=== PATIENT | female | born 1935 | race Caucasian/White ===

== ENCOUNTER 2016-10-22 15:40 | Inpatient (IN) | payer OTHER ==
[2016-10-22] VITALS (9 sets, daily range): BP systolic 131–166; BP diastolic 61–72
[~2016-10-22] VITALS: Ht 162.6 cm; Wt 53.6 kg
[~2016-10-22 15:40] MED LIST: AMLODIPINE BESYL5 MG PO; ASPIRIN81 M2 PO; Ascorbic Acid,Ester- PO; BACTRIM,SEPT1 TABLET PO; CALCIUM 600 +1 EAC9 PO; Ceftin PO; DAILY MULTIPLE1 EACH PO; DIOVAN160 MG PO; ELAVIL25 MG PO; ESTRADIOL0.5 MG PO; FOSAMAX35 MG PO; KEFLEX500 MG PO; LUTEIN10 MG PO; Miralax, Glycolax PO; PLAVIX75 MG PO; PRAVACHOL40 MG PO; QUALAQUIN324 MG PO; TAMIFLU75 MG PO; TESSALON PERLE100 MG PO; TONIC WATER PO; TRAMADOL HCL50 MG PO; Ultram PO; VALSARTAN320 MG PO; ZITHROMAX Z-PA250 MG PO
[2016-10-22 16:07] LABS: EOSINOPHIL (%) 2.8 % (0-5); EOSINOPHIL COUNT 0.2 K/uL (0-0.3); HEMATOCRIT 35.2 % (36.0-46.0); IMMATURE GRANULOCYTE (%) 0.6 % (0.0-0.7); INSTRUMENT ABS NEUTROPHIL CT 4.2 K/uL; LYMPHOCYTE COUNT 1.8 K/uL (1.0-2.8); MCH 28.5 PG (29.0-34.0); MCV 91.9 FL (83-99); MEAN PLAT.VOLUME 10.1 uM^3 (9.5-12.4); MONOCYTE COUNT 0.9 K/uL (0-0.8); NEUTROPHIL (%) 59.3 % (45-76); NEUTROPHIL COUNT 4.2 K/uL (1.8-6.4); PLATELET COUNT 299 K/uL (156-360); RBC DIS.WIDTH-CV 13.3 % (11.8-14.6); RBC DIS.WIDTH-SD 45.2 % (39-53); RED BLOOD COUNT 3.83 M/uL (3.80-5.20); WHITE BLOOD COUNT 7.2 K/uL (4.1-10.2)
[2016-10-22 16:15] LABS: AMYLASE 217 IU/L (1-118); CHLORIDE 105 mEq/L (99-109); POTASSIUM 4.9 mEq/L (3.7-5.4); SODIUM 135 mEq/L (136-147)
[2016-10-22 16:16] LABS: GLUCOSE 99 mg/dL (70-99); PROTHROMBIN TIME 10.2 (9.2-11.2)
[2016-10-22 16:18] LABS: ANION GAP 10 MEQ/L (2-14)
[2016-10-22 16:20] LABS: GFR ESTIMATE (CALCULATED) 19 mL/min/; SERUM ETHYL ALCOHOL < 10 mg/dL
[2016-10-22 16:21] LABS: UREA NITROGEN (BUN) 56 mg/dL (9-23)
[2016-10-22 16:23] LABS: LIPASE 86 U/L (1.0-51.0)
[2016-10-22 16:25] LABS: POINT-OF-CARE METER ID UU13113702
[2016-10-22 16:27] LABS: TROP-I INTERPRETATION NEGATIVE; TROPONIN-I 0.01 ng/mL (0.0-0.30)
[2016-10-22] MEDS ORDERED: TYLENOL REGULA325 MG PO (19:30)
[2016-10-22] MEDS ORDERED: PROAIR HFA8.5 GM IH (19:30)
[2016-10-22] MEDS ORDERED: NATURAL BALANCE15 M1 BOTH EYES (19:31)
[2016-10-22] MEDS ORDERED: AQUAPHOR W-NAT50 GM TP (19:31)
[2016-10-22 20:03] LABS: ADD MIUA? YES; BILIRUBIN NEGATIVE; BLOOD NEGATIVE; COLOR YELLOW ((YELLOW)); GLUCOSE (STRIP) NEGATIVE; KETONES NEGATIVE; LEUKOCYTES LARGE; NITRITE NEGATIVE; PROTEIN (STRIP) 100; SPECIFIC GRAVITY 1.012 (1.000-1.030); UROBILINOGEN 0.2 MG/DL (0.2-1.0)
[2016-10-22 20:31] LABS: BACTERIA RARE /HPF; EPITHELIAL CELLS RARE /HPF; MUCUS NONE SEEN /LPF; RED BLOOD CELLS 0-5 /HPF (0-5); UCUL ADDED? YES; WHITE BLOOD CELLS TNTC /HPF (0-5)
[2016-10-22 20:31] LABS: AMPHETAMINE NEGATIVE (500 ng/mL); BARBITURATES NEGATIVE (200 ng/mL); BENZODIAZEPINES NEGATIVE (150 ng/mL); COCAINE NEGATIVE (150 ng/mL); INTERNAL CONTROLS VALID? YES; METHADONE NEGATIVE (200 ng/mL); METHAMPHETAMINE NEGATIVE (500 ng/mL); OPIATES (MORPHINE) NEGATIVE (100 ng/mL); OXYCODONE NEGATIVE (100 ng/mL); PHENCYCLIDINE NEGATIVE (25 ng/mL); PROPOXYPHENE NEGATIVE (300 ng/mL); THC CANNABINOIDS NEGATIVE (50 ng/mL); TRICYCLIC ANTIDEPRESSANTS PRESUMPTIVE POSITIVE (300 ng/mL)
[2016-10-22 21:49] LABS: METH RESISTANT S AUREUS PCR NEGATIVE (NEGATIVE)
[2016-10-22 21:53] LABS: PROBE CHECK PASS; SPECIMEN PROCESSING CONTROL PASS
[2016-10-23] VITALS (21 sets, daily range): BP systolic 122–177; BP diastolic 41–85
[2016-10-23 06:01] LABS: HEMATOCRIT 29.6 % (36.0-46.0); MCH 28.9 PG (29.0-34.0); MCHC 31.1 G/DL (30.0-36.0); MCV 93.1 FL (83-99); MEAN PLAT.VOLUME 10.2 uM^3 (9.5-12.4); PLATELET COUNT 232 K/uL (156-360); RBC DIS.WIDTH-CV 13.3 % (11.8-14.6); RBC DIS.WIDTH-SD 45.3 % (39-53); RED BLOOD COUNT 3.18 M/uL (3.80-5.20); WHITE BLOOD COUNT 6.2 K/uL (4.1-10.2)
[2016-10-23 06:22] LABS: ANION GAP 8 MEQ/L (2-14); CHLORIDE 110 MEQ/L (99-109); GLUCOSE 74 mg/dL (70-99); MAGNESIUM 2.1 mg/dl (1.3-2.7); POTASSIUM 4.8 MEQ/L (3.7-5.4); SAMPLE HEMOLYSIS CHECK 0; SAMPLE ICTERIC CHECK 0; SAMPLE LIPEMIA CHECK 0; SODIUM 139 MEQ/L (136-147); UREA NITROGEN (BUN) 45 mg/dL (9-23)
[2016-10-23 06:39] LABS: GFR ESTIMATE (CALCULATED) 25 mL/min/
[2016-10-23 13:34] LABS: FASTING STATUS NONFASTING
[2016-10-23 14:10] LABS: HDL CHOLESTEROL 59 MG/DL (Desirable>=50); LDL CHOLESTEROL 68 mg/dL (Desirable<100); NON-HDL CHOLESTEROL 95 mg/dL (Desirable<160); TOTAL CHOLESTEROL 154 mg/dL (Desirable<200); TRIGLYCERIDES 134 MG/DL (Normal: <150)
[2016-10-24 03:00] VITALS: BP 116/60; BP 123/61
[2016-10-24 06:53] LABS: HEMATOCRIT 35.6 % (36.0-46.0); MCH 28.6 PG (29.0-34.0); MCHC 30.3 G/DL (30.0-36.0); MCV 94.4 FL (83-99); MEAN PLAT.VOLUME 10.3 uM^3 (9.5-12.4); PLATELET COUNT 260 K/uL (156-360); RBC DIS.WIDTH-CV 13.5 % (11.8-14.6); RBC DIS.WIDTH-SD 46.6 % (39-53); RED BLOOD COUNT 3.77 M/uL (3.80-5.20); WHITE BLOOD COUNT 6.3 K/uL (4.1-10.2)
[2016-10-24 07:14] LABS: ANION GAP 10 MEQ/L (2-14); CHLORIDE 113 MEQ/L (99-109); GFR ESTIMATE (CALCULATED) 29 mL/min/; GLUCOSE 89 mg/dL (70-99); MAGNESIUM 2.2 mg/dl (1.3-2.7); POTASSIUM 4.6 MEQ/L (3.7-5.4); SAMPLE HEMOLYSIS CHECK 0; SAMPLE ICTERIC CHECK 0; SAMPLE LIPEMIA CHECK 0; SODIUM 143 MEQ/L (136-147); UREA NITROGEN (BUN) 39 mg/dL (9-23)
[2016-10-24 08:47] VITALS: BP 132/72
[2016-10-24 11:26] VITALS: BP 130/70
[2016-10-24 15:43] VITALS: BP 118/68
[2016-10-24 19:10] VITALS: BP 132/66
[2016-10-25 00:26] VITALS: BP 142/67
[2016-10-25 04:37] VITALS: BP 130/76
[2016-10-25 06:49] LABS: HEMATOCRIT 32.3 % (36.0-46.0); MCH 28.9 PG (29.0-34.0); MCV 93.4 FL (83-99); MEAN PLAT.VOLUME 10.4 uM^3 (9.5-12.4); PLATELET COUNT 262 K/uL (156-360); RBC DIS.WIDTH-CV 13.6 % (11.8-14.6); RBC DIS.WIDTH-SD 46.1 % (39-53); RED BLOOD COUNT 3.46 M/uL (3.80-5.20); WHITE BLOOD COUNT 5.9 K/uL (4.1-10.2)
[2016-10-25 07:24] LABS: ANION GAP 10 MEQ/L (2-14); CHLORIDE 109 MEQ/L (99-109); GFR ESTIMATE (CALCULATED) 29 mL/min/; GLUCOSE 85 mg/dL (70-99); MAGNESIUM 1.9 mg/dl (1.3-2.7); POTASSIUM 4.5 MEQ/L (3.7-5.4); SAMPLE HEMOLYSIS CHECK 0; SAMPLE ICTERIC CHECK 0; SAMPLE LIPEMIA CHECK 0; SODIUM 140 MEQ/L (136-147); UREA NITROGEN (BUN) 41 mg/dL (9-23)
[2016-10-25 08:30] VITALS: BP 142/64
[2016-10-25 12:30] VITALS: BP 175/74
[2016-10-25 15:26] VITALS: BP 186/79
[2016-10-25 20:11] VITALS: BP 175/68
[2016-10-26] VITALS (7 sets, daily range): BP systolic 110–148; BP diastolic 64–78
[2016-10-26 07:06] LABS: HEMATOCRIT 32.7 % (36.0-46.0); MCH 28.6 PG (29.0-34.0); MCHC 30.9 G/DL (30.0-36.0); MCV 92.6 FL (83-99); MEAN PLAT.VOLUME 10.5 uM^3 (9.5-12.4); PLATELET COUNT 255 K/uL (156-360); RBC DIS.WIDTH-CV 13.4 % (11.8-14.6); RBC DIS.WIDTH-SD 45.1 % (39-53); RED BLOOD COUNT 3.53 M/uL (3.80-5.20)
[2016-10-26 07:08] LABS: WHITE BLOOD COUNT 7.7 K/uL (4.1-10.2)
[2016-10-26 07:21] LABS: ANION GAP 10 MEQ/L (2-14); CHLORIDE 106 MEQ/L (99-109); GFR ESTIMATE (CALCULATED) 29 mL/min/; GLUCOSE 81 mg/dL (70-99); MAGNESIUM 1.9 mg/dl (1.3-2.7); POTASSIUM 4.8 MEQ/L (3.7-5.4); SAMPLE HEMOLYSIS CHECK 0; SAMPLE ICTERIC CHECK 0; SAMPLE LIPEMIA CHECK 0; SODIUM 138 MEQ/L (136-147); UREA NITROGEN (BUN) 47 mg/dL (9-23)
[2016-10-27 04:19] VITALS: BP 117/58
[2016-10-27 07:44] VITALS: BP 118/58
[2016-10-27 12:08] VITALS: BP 120/62
[2016-10-27] MEDS ORDERED: MAXIPIME1 GM IV (14:24)
== END 2016-10-27 14:56 | disposition home or self-care (01) | DRG 62 ==
LOC: EME → EDBD 15:40 → EME 15:40 → 4EAST 17:49 → EDOF 17:49 → 4WEST 17:49 → 4EAST 10-23 21:43
PROVIDERS: Emergency Medicine; Internal Medicine Nephrology
DX: I63.9 Cerebral infarction, unspecified (principal); N17.9 Acute kidney failure, unspecified; I69.351 Hemiplegia and hemiparesis following cerebral infarction affecting right dominant side; N39.0 Urinary tract infection, site not specified; N18.9 Chronic kidney disease, unspecified; I12.9 Hypertensive chronic kidney disease with stage 1 through stage 4 chronic kidney disease, or unspecified chronic kidney disease; I73.9 Peripheral vascular disease, unspecified; G47.00 Insomnia, unspecified; M81.0 Age-related osteoporosis without current pathological fracture; H35.30 Unspecified macular degeneration; L40.9 Psoriasis, unspecified; B96.5 Pseudomonas (aeruginosa) (mallei) (pseudomallei) as the cause of diseases classified elsewhere; Z79.01 Long term (current) use of anticoagulants; Z87.891 Personal history of nicotine dependence
CPT/HCPCS: 70450; 70544; 70547; 70551; 80048; 80061; 81003; 82150; 82948; 83690; 83735; 84100; 84484; 85025; 85027; 85610; 85730; 86850; 86900; 86901; 87077; 87086; 87186; 87641; 93005; 93306; 99281; 99285; G0480; J0692; J2060; J2997; J7030; J7050; S0028

== ENCOUNTER 2018-03-04 14:23 | Emergency (ER) | payer OTHER ==
[~2018-03-04] VITALS: Ht 160 cm; Wt 50.8 kg
[~2018-03-04 14:23] MED LIST changes: +AQUAPHOR W-NAT50 GM TP; +MAXIPIME1 GM IV; +NATURAL BALANCE15 M1 BOTH EYES; +PROAIR HFA8.5 GM IH; +TYLENOL REGULA325 MG PO
[2018-03-04 16:29] VITALS: BP 152/82
== END 2018-03-04 16:29 | disposition home or self-care (01) ==
LOC: EME 14:23
DX: S00.83XA Contusion of other part of head, initial encounter (principal); S51.012A Laceration without foreign body of left elbow, initial encounter; W01.0XXA Fall on same level from slipping, tripping and stumbling without subsequent striking against object, initial encounter; J44.9 Chronic obstructive pulmonary disease, unspecified; M79.7 Fibromyalgia; Z87.891 Personal history of nicotine dependence; Z79.02 Long term (current) use of antithrombotics/antiplatelets; Z79.82 Long term (current) use of aspirin; Z90.710 Acquired absence of both cervix and uterus; Z88.2 Allergy status to sulfonamides; Z88.5 Allergy status to narcotic agent
CPT/HCPCS: 70450; 73080; 99281; 99284

== ENCOUNTER 2018-03-08 16:04 | Emergency (ER) | payer OTHER ==
[~2018-03-08] VITALS: Ht 160 cm; Wt 49.2 kg
[2018-03-08 17:26] LABS: HEMATOCRIT 31.3 % (36.0-46.0); HEMOGLOBIN 10.3 G/DL (11.9-15.5); MCH 28.9 PG (29.0-34.0); MCHC 32.9 G/DL (30.0-36.0); MCV 87.7 FL (83-99); PLATELET COUNT 230 K/uL (156-360); RBC DIS.WIDTH-CV 14.1 % (11.8-14.6); RBC DIS.WIDTH-SD 44.9 % (39-53); RED BLOOD COUNT 3.57 M/uL (3.80-5.20); WHITE BLOOD COUNT 7.5 K/uL (4.1-10.2)
[2018-03-08 17:38] LABS: CHLORIDE 102 mEq/L (99-109); POTASSIUM 4.8 mEq/L (3.7-5.4); SODIUM 138 mEq/L (136-147)
[2018-03-08 17:40] LABS: GLUCOSE 96 mg/dL (70-99)
[2018-03-08 17:44] LABS: GFR ESTIMATE (CALCULATED) 25 mL/min/
[2018-03-08 17:45] LABS: UREA NITROGEN (BUN) 47 mg/dL (9-23)
[2018-03-08] MEDS ORDERED: KEFLEX250 MG PO (19:28)
[2018-03-08] MEDS ORDERED: TRAMADOL HCL50 MG PO (19:34)
[2018-03-08 19:43] VITALS: BP 157/75
== END 2018-03-08 19:45 | disposition home or self-care (01) ==
LOC: EME 16:04
PROVIDERS: Physician Assistant
DX: L03.114 Cellulitis of left upper limb (principal); N18.9 Chronic kidney disease, unspecified; Z91.81 History of falling; Z88.2 Allergy status to sulfonamides; Z88.5 Allergy status to narcotic agent
CPT/HCPCS: 73080; 80048; 83605; 85027; 87075; 87147; 87205; 99281; 99285